=== PATIENT | male | born 2000 | race Caucasian/White ===

== ENCOUNTER 2019-11-27 22:22 | Inpatient (IN) ==
[2019-11-27 23:29] LABS: Basophils # 0.1 K/mcL (0.0-0.2); Basophils % 0.4 %; Eosinophils # 0.1 K/mcL (0.0-0.6); Eosinophils % 0.4 %; Hematocrit 46.1 % (37.5-50.1); Hemoglobin 16.1 g/dL (12.9-16.9); Immature Granulocytes % 0.6 % (0-4); Lymphocytes # 1.4 K/mcL (0.6-4.6); Lymphocytes % 9.6 %; Mean Corpuscular HGB Conc 34.9 g/dL (31.6-35.5); Mean Corpuscular Hemoglobin 31.7 pg (28.0-33.3); Mean Corpuscular Volume 90.7 fL (83.0-100.0); Monocytes # 1.1 K/mcL (0.0-1.3); Monocytes % 7.9 %; Neutrophils # 11.4 K/mcL (1.6-8.9); Platelet Count 294 K/mcL (140-400); Red Blood Count 5.08 M/mcL (4.19-5.50); Red Cell Distribution Width 12.5 % (11.5-14.5); Segmented Neutrophils % 81.1 %
[2019-11-27 23:36] LABS: Amphetamine Screen,Urine Negative ng/mL (Cutoff=1000); Barbiturate Screen,Urine Negative ng/mL (Cutoff=200); Benzodiazepines Screen,Urine Negative ng/mL (Cutoff=200); Cannabinoid Screen,Urine Positive ng/mL (Cutoff = 50); Cocaine Screen,Urine Negative ng/mL (Cutoff= 300); Opiate Screen,Urine Negative ng/mL (Cutoff=300); Phencyclidine Screen,Urine Negative ng/mL (Cutoff=25)
[2019-11-27 23:50] LABS: Acetaminophen < 10 mcg/mL (10-20); BUN/Creatinine Ratio 19 (6-26); Blood Urea Nitrogen 13 mg/dL (6-20); Calcium 9.6 mg/dL (8.6-10.3); Carbon Dioxide 23 mEq/L (23-29); Chloride 106 mEq/L (98-107); Ethanol < 10 mg/dL (Less than 10); Glucose 105 mg/dL (70-105); Osmolality,Calculated 290 (280-300); Potassium 3.2 mEq/L (3.5-5.1); Salicylate 5.3 mg/dL (15.0-30.0); Sodium 140 mEq/L (136-145); eGFR For African Americans > 60 (> 60); eGFR For Non-African Americans > 60 (> 60)
[2019-11-28] MEDS ORDERED: *HR* LORazepam 2 MG/ML VIAL IM PRN (01:17)
[2019-11-28] MEDS ORDERED: Ibuprofen 400 MG TABLET PO PRN (01:17)
[2019-11-28] MEDS ORDERED: Haloperidol Lactate 5 MG/ML VIAL IM PRN (01:17)
[2019-11-28] MEDS ORDERED: QUEtiapine Fumarate 25 MG TABLET PO PRN (01:17)
[2019-11-28] MEDS ORDERED: haloperidoL 5 MG TABLET PO PRN (01:17)
[2019-11-28] MEDS ORDERED: *HR* LORazepam 1 MG TABLET PO PRN (01:17)
[2019-11-28] MEDS ORDERED: Acetaminophen 325 MG TABLET PO PRN (01:17)
[2019-11-28] MEDS: hydrOXYzine pamoate 25 MG CAPSULE PO PRN (10:36)
[2019-11-28 10:58] LABS: Chol/HDL Ratio 4.5 (0-4.9); Cholesterol 165 mg/dL (< 200); HDL Cholesterol 37 mg/dL (40-59); LDL Cholesterol,Calculated 113 mg/dL (0-99); Triglycerides 77 mg/dL (< 150)
[2019-11-28 11:12] LABS: Thyroid Stimulating Hormone 1.311 mcIU/mL (0.340-5.600)
[2019-11-28 13:17] LABS: Estimated Average Glucose 114 mg/dl
[2019-11-28] MEDS ORDERED: QUEtiapine Fumarate 25 MG TABLET PO STA (14:20)
[2019-11-28] MEDS ORDERED: QUEtiapine Fumarate 100 MG TABLET PO SCH (21:00)
[2019-11-29] MEDS: hydrOXYzine pamoate 25 MG CAPSULE PO PRN (06:42)
[2019-11-29] MEDS: QUEtiapine Fumarate 100 MG TABLET PO SCH ×2 (09:44→21:35)
[2019-11-29] MEDS ORDERED: Ziprasidone 10 MG in Water for inj. (sterile) 0.5 ML IM PRN (10:00)
[2019-11-29] MEDS ORDERED: OLANZapine 5 MG TAB.RAPDIS PO PRN (10:01)
[2019-11-29 16:10] LABS: Basophils # 0.1 K/mcL (0.0-0.2); Basophils % 0.5 %; Eosinophils # 0.2 K/mcL (0.0-0.6); Eosinophils % 1.6 %; Hematocrit 44.3 % (37.5-50.1); Immature Granulocytes % 0.4 % (0-4); Lymphocytes # 2.6 K/mcL (0.6-4.6); Lymphocytes % 19.2 %; Mean Corpuscular HGB Conc 33.9 g/dL (31.6-35.5); Mean Corpuscular Volume 91.5 fL (83.0-100.0); Mean Platelet Volume 10.4 fL (9.4-12.4); Monocytes # 1.4 K/mcL (0.0-1.3); Monocytes % 10.8 %; Platelet Count 252 K/mcL (140-400); Red Blood Count 4.84 M/mcL (4.19-5.50); Red Cell Distribution Width 12.8 % (11.5-14.5); Segmented Neutrophils % 67.5 %; White Blood Count 13.3 K/mcL (4.3-11.1)
[2019-11-29 16:23] LABS: BUN/Creatinine Ratio 14 (6-26); Blood Urea Nitrogen 12 mg/dL (6-20); Calcium 9.1 mg/dL (8.6-10.3); Carbon Dioxide 25 mEq/L (23-29); Chloride 106 mEq/L (98-107); Glucose 89 mg/dL (70-105); Magnesium 2.5 mg/dL (1.6-2.6); Osmolality,Calculated 287 (280-300); Potassium 3.8 mEq/L (3.5-5.1); Sodium 139 mEq/L (136-145); eGFR For African Americans > 60 (> 60); eGFR For Non-African Americans > 60 (> 60)
[2019-11-29 17:14] LABS: ABG Base Excess 2 mEq/L (-2 to 3); ABG HCO3 26 mEq/L (21-27); ABG Oxygen Saturation 97 % (95-98); ABG PCO2 39 mmHg (35-45); ABG PH 7.43 pH Units (7.32-7.45); ABG PO2 91 mmHg (85-104); ABG TCO2 27 mEq/L (20-26)
[2019-11-29] MEDS: Povidone-Iodine 237 ML BOTTLE TP SCH ×2 (18:50→21:35)
[2019-11-29] MEDS: Doxycycline 100 MG CAPSULE PO SCH (21:35)
[2019-11-30] MEDS: QUEtiapine Fumarate 100 MG TABLET PO SCH ×2 (08:48→21:55)
[2019-11-30] MEDS: Doxycycline 100 MG CAPSULE PO SCH (08:48)
[2019-11-30] MEDS: Povidone-Iodine 237 ML BOTTLE TP SCH ×4 (14:48→21:53)
[2019-12-01] MEDS: Povidone-Iodine 237 ML BOTTLE TP SCH ×5 (11:02→21:35)
[2019-12-01] MEDS: QUEtiapine Fumarate 100 MG TABLET PO SCH ×2 (11:10→12:10)
[2019-12-01] MEDS: QUEtiapine Fumarate 300 MG TABLET PO SCH ×2 (12:09→21:32)
[2019-12-02] MEDS: QUEtiapine Fumarate 100 MG TABLET PO SCH (08:30)
[2019-12-02] MEDS: Povidone-Iodine 237 ML BOTTLE TP SCH (08:37)
[2019-12-02 08:41] VITALS: BP 109/74
== END 2019-12-02 13:35 | disposition home or self-care (01) | DRG 720 ==
LOC: EMEROOARM 22:22 → 1ANU 11-28 00:58
PROVIDERS: ADMIT Psychiatry & Neurology Psychiatry; ATTEND Psychiatry & Neurology Psychiatry

== ENCOUNTER 2019-12-06 17:09 | Inpatient (IN) ==
[2019-12-06] MEDS ORDERED: *HR* LORazepam 2 MG/ML VIAL IM ONE (17:27)
[2019-12-06] MEDS ORDERED: *HR* LORazepam 1 MG TABLET SL ONE (17:48)
[2019-12-06] MEDS ORDERED: *HR* LORazepam 1 MG TABLET PO ONE ×2 (18:00→21:56)
[2019-12-06 18:45] LABS: Basophils # 0.1 K/mcL (0.0-0.2); Basophils % 0.5 %; Eosinophils # 0.1 K/mcL (0.0-0.6); Eosinophils % 0.7 %; Hematocrit 44.5 % (37.5-50.1); Hemoglobin 15.4 g/dL (12.9-16.9); Immature Granulocytes % 0.6 % (0-4); Lymphocytes # 2.1 K/mcL (0.6-4.6); Lymphocytes % 14.4 %; Mean Corpuscular HGB Conc 34.6 g/dL (31.6-35.5); Mean Corpuscular Hemoglobin 31.7 pg (28.0-33.3); Mean Corpuscular Volume 91.6 fL (83.0-100.0); Monocytes # 1.7 K/mcL (0.0-1.3); Monocytes % 11.4 %; Neutrophils # 10.7 K/mcL (1.6-8.9); Platelet Count 300 K/mcL (140-400); Red Blood Count 4.86 M/mcL (4.19-5.50); Red Cell Distribution Width 12.1 % (11.5-14.5); Segmented Neutrophils % 72.4 %; White Blood Count 14.8 K/mcL (4.3-11.1)
[2019-12-06 19:07] LABS: Bacteria,Urine Few per hpf (None-Few); Bilirubin,Urine Negative (Negative); Blood,Urine Trace (Negative); Clarity,Urine Clear (Clear); Color,Urine Yellow (Yellow); Glucose,Urine (UA) Normal (Normal); Ketones,Urine 10 mg/dL (Negative); Leukocyte Esterase,Urine Negative (Negative); Mucus,Urine Few per lpf (None-Few); Nitrite,Urine Negative (Negative); PH,Urine 6.5 pH Units (5.0-8.0); Protein,Urine 70 mg/dL (Neg-Trace); Specific Gravity,Urine 1.028 (1.010-1.025); Sperm,Urine Present (None Seen); WBC,Urine 0-3 per hpf (0-3)
[2019-12-06 19:08] LABS: Acetaminophen < 10 mcg/mL (10-20); BUN/Creatinine Ratio 18 (6-26); Blood Urea Nitrogen 14 mg/dL (6-20); Calcium 9.9 mg/dL (8.6-10.3); Carbon Dioxide 21 mEq/L (23-29); Chloride 102 mEq/L (98-107); Ethanol < 10 mg/dL (Less than 10); Glucose 80 mg/dL (70-105); Osmolality,Calculated 281 (280-300); Salicylate < 2.5 mg/dL (15.0-30.0); Sodium 136 mEq/L (136-145); eGFR For African Americans > 60 (> 60); eGFR For Non-African Americans > 60 (> 60)
[2019-12-06 19:10] LABS: Amphetamine Screen,Urine Negative ng/mL (Cutoff=1000); Barbiturate Screen,Urine Negative ng/mL (Cutoff=200); Benzodiazepines Screen,Urine Negative ng/mL (Cutoff=200); Cannabinoid Screen,Urine Positive ng/mL (Cutoff = 50); Cocaine Screen,Urine Negative ng/mL (Cutoff= 300); Opiate Screen,Urine Negative ng/mL (Cutoff=300); Phencyclidine Screen,Urine Negative ng/mL (Cutoff=25)
[2019-12-06 19:20] LABS: Thyroid Stimulating Hormone 1.563 mcIU/mL (0.340-5.600)
[2019-12-06] MEDS ORDERED: haloperidoL 5 MG TABLET PO PRN (23:41)
[2019-12-06] MEDS ORDERED: *HR* LORazepam 2 MG/ML VIAL IM PRN (23:41)
[2019-12-06] MEDS ORDERED: *HR* LORazepam 1 MG TABLET PO PRN (23:41)
[2019-12-06] MEDS ORDERED: Haloperidol Lactate 5 MG/ML VIAL IM PRN (23:41)
[2019-12-06] MEDS ORDERED: QUEtiapine Fumarate 300 MG TABLET PO SCH (23:45)
[2019-12-07] MEDS ORDERED: Ziprasidone 20 MG in Water for inj. (sterile) 1 ML IM PRN (12:33)
[2019-12-07] MEDS ORDERED: RisperiDONE-M 1 MG TAB.RAPDIS PO PRN (12:33)
[2019-12-07] MEDS: QUEtiapine Fumarate 100 MG TABLET PO SCH (12:40)
[2019-12-07] MEDS: hydrOXYzine pamoate 25 MG CAPSULE PO PRN (18:16)
[2019-12-07] MEDS ORDERED: QUEtiapine Fumarate 100 MG TABLET PO SCH (21:00)
[2019-12-07] MEDS ORDERED: OLANZapine 5 MG TAB.RAPDIS PO PRN (22:29)
[2019-12-07] MEDS: traZODone 50 MG TABLET PO PRN (22:37)
[2019-12-07] MEDS: RisperiDONE-M 1 MG TAB.RAPDIS PO SCH (22:37)
[2019-12-08] MEDS ORDERED: MOM Conc 10 ML UD.LIQ PO PRN (00:31)
[2019-12-08] MEDS: hydrOXYzine pamoate 25 MG CAPSULE PO PRN ×2 (10:05→21:14)
[2019-12-08] MEDS: QUEtiapine Fumarate 100 MG TABLET PO SCH (10:06)
[2019-12-08] MEDS ORDERED: RisperiDONE MICROSPHERES 25 MG/2 ML SYRINGE IM SCH (10:30)
[2019-12-08] MEDS ORDERED: Paliperidone Palmitate [Invega Sustenna] 234 MG IM SCH (16:00)
[2019-12-08] MEDS ORDERED: Paliperidone Palmitate [Invega Sustenna] 234 MG IM PRN (17:00)
[2019-12-08] MEDS ORDERED: QUEtiapine Fumarate 100 MG TABLET PO SCH (21:00)
[2019-12-08] MEDS: RisperiDONE-M 1 MG TAB.RAPDIS PO SCH (21:10)
[2019-12-09] MEDS: Paliperidone Palmitate [Invega Sustenna] 234 MG IM SCH (11:46)
[2019-12-09] MEDS: RisperiDONE-M 1 MG TAB.RAPDIS PO SCH (20:14)
[2019-12-09] MEDS: hydrOXYzine pamoate 25 MG CAPSULE PO PRN (20:14)
[2019-12-10] MEDS: RisperiDONE-M 1 MG TAB.RAPDIS PO SCH ×2 (08:32→21:01)
[2019-12-10] MEDS: Paliperidone Palmitate [Invega Sustenna] 234 MG IM SCH (08:41)
[2019-12-10] MEDS: hydrOXYzine pamoate 25 MG CAPSULE PO PRN (21:01)
[2019-12-10] MEDS: Mag Hydrox/Al Hydrox/Simeth 30 ML UDC PO PRN (22:50)
[2019-12-10] MEDS: traZODone 50 MG TABLET PO PRN (23:50)
[2019-12-11] MEDS: Acetaminophen 325 MG TABLET PO PRN ×3 (01:37→20:05)
[2019-12-11] MEDS: RisperiDONE-M 1 MG TAB.RAPDIS PO SCH (08:05)
[2019-12-11] MEDS: hydrOXYzine pamoate 25 MG CAPSULE PO PRN ×3 (10:19→18:00)
[2019-12-11] MEDS: Mag Hydrox/Al Hydrox/Simeth 30 ML UDC PO PRN (13:48)
[2019-12-11] MEDS: traZODone 50 MG TABLET PO PRN (20:05)
[2019-12-12] MEDS: hydrOXYzine pamoate 25 MG CAPSULE PO PRN ×3 (08:19→14:34)
[2019-12-12] MEDS: Acetaminophen 325 MG TABLET PO PRN ×2 (12:14→19:22)
[2019-12-12] MEDS: Mag Hydrox/Al Hydrox/Simeth 30 ML UDC PO PRN (12:15)
[2019-12-12] MEDS: Ibuprofen 400 MG TABLET PO PRN ×2 (14:19→21:24)
[2019-12-12] MEDS: traZODone 50 MG TABLET PO PRN (20:07)
[2019-12-13] MEDS: Acetaminophen 325 MG TABLET PO PRN ×2 (03:20→18:11)
[2019-12-13] MEDS: hydrOXYzine pamoate 25 MG CAPSULE PO PRN ×3 (06:18→13:15)
[2019-12-13] MEDS: Ibuprofen 400 MG TABLET PO PRN ×2 (12:12→21:02)
[2019-12-13] MEDS: Mag Hydrox/Al Hydrox/Simeth 30 ML UDC PO PRN ×2 (12:12→21:02)
[2019-12-13] MEDS: traZODone 50 MG TABLET PO PRN (20:47)
[2019-12-14] MEDS: hydrOXYzine pamoate 25 MG CAPSULE PO PRN (08:16)
[2019-12-14] MEDS ORDERED: Paliperidone Palmitate [Invega Sustenna] 156 MG IM SCH (09:15)
[2019-12-14 09:45] VITALS: BP 108/75
== END 2019-12-14 10:00 | disposition home or self-care (01) | DRG 750 ==
LOC: EMEROOARM 17:09 → SUATTDRO 23:32 → 1ANU 23:32
PROVIDERS: ADMIT Psychiatry & Neurology Psychiatry; ATTEND Psychiatry & Neurology Psychiatry